=== PATIENT | male | born 1955 | race Caucasian/White ===

== ENCOUNTER 2018-07-02 17:44 | Observation (INO) | payer BC ==
[2018-07-02 18:03] LABS: PLATELET COUNT 237 10^3/uL (150-400)
[2018-07-02] MEDS ORDERED: IOPAMIDOL (ISOVUE 370) 100 ML BTL IV ONE (18:37)
--- NOTE | 2018-07-02 19:59 | PDGENHP ---
History and Physical - Chief Complaint Syncope - History of Present Illness Patient is a healthy 63-year-old male with past medical history of hypertension , hyperlipidemia, BPH and recent knee injury who was brought to the emergency room [place] [employer] [place]. Patient is visiting [place] and was having a beer [place] the [employer] [place] with a friend. He had a few sips and said that he started to feel little faint. His symptoms worsened he said he got tunnel vision and saw stars and then before he could fall someone at table next to him caught him and laid him down on the ground. He was able to answer questions during this entire episode but his friend said that he did not seem to be "with it". They tried to set him up and he became dizzy again and so they lied back down. Fire department was called who noted that his heart rate was in the 30s and his blood pressure was in the 60 systolic. At this point he feels fine, has no chest pain, shortness of breath or other symptoms. He said that he walked over 3 miles this morning and ate very little and only had coffee to drink. He thinks this may be the cause of his symptoms. He says he is a runner and normally has a low heart rate. History Information - Allergies/Home Medication List Allergies/Adverse Reactions: No Known Allergies Allergy (Unverified 07/02/18 17:47) Home Medications: Amlodipine Besylate 07/02/18 [Last Taken Unknown] Atorvastatin Calcium 07/02/18 [Last Taken Unknown] Lisinopril 07/02/18 [Last Taken Unknown] Prednisolone 07/02/18 [Last Taken Unknown] Verapamil 07/02/18 [Last Taken Unknown] I have personally reviewed and updated: family history, medical history, social history, surgical history - Past Medical History Additional medical history: Hypertension, hyperlipidemia, and BPH - Surgical History Additional surgical history: hernia, lasik, tendon surgery on hand, right ring amputation - Family History Positive for: non-pertinent - Social History Smoking Status: Never smoked Alcohol Use: Occasionally Drug Use: None Review of Systems Review of Systems: ROS: 10pt was reviewed & negative except for what was stated in HPI & below Physical Exam Physical Exam: Temp Pulse Resp BP Pulse Ox 36.7 C 74 17 131/78 H 94 07/02/18 17:47 07/02/18 19:05 07/02/18 19:05 07/02/18 19:05 07/02/18 19:05 Constitutional: no apparent distress, appears nourished, not in pain Eyes: PERRL, anicteric sclera, EOMI Ears, Nose, Mouth, Throat: moist mucous membranes, hearing normal, ears appear normal, no oral mucosal ulcers Cardiovascular: regular rate and rhythym, no murmur, rub, or gallop, No edema Respiratory: no respiratory distress, no rales or rhonchi, clear to auscultation Gastrointestinal: normoactive bowel sounds, soft, non-tender abdomen, no palpable masses Genitourinary: no bladder fullness, no bladder tenderness Skin: warm, normal color, no rashes or abrasions, no fluctuance, no induration, No mottled Musculoskeletal: full muscle strength, no muscle tenderness, normal joint ROM, no joint effusions Psychiatric: interacting appropriately, not anxious, not encephalopathic, thought process linear Lymph, Heme, Immunologic: no cervical LAD, no supraclavicular LAD Lab Data & Imaging Review 07/02/18 17:50 07/02/18 17:50 WBC 6.65 10^3/uL (3.80-9.50) 07/02/18 17:50 RBC 4.40 10^6/uL (4.40-6.38) 07/02/18 17:50 Hgb 13.3 g/dL (13.7-17.5) L 07/02/18 17:50 Hct 38.1 % (40.0-51.0) L 07/02/18 17:50 MCV 86.6 fL (81.5-99.8) 07/02/18 17:50 MCH 30.2 pg (27.9-34.1) 07/02/18 17:50 MCHC 34.9 g/dL (32.4-36.7) 07/02/18 17:50 RDW 12.3 % (11.5-15.2) 07/02/18 17:50 Plt Count 237 10^3/uL (150-400) 07/02/18 17:50 MPV 11.2 fL (8.7-11.7) 07/02/18 17:50 Neut % (Auto) 61.0 % (39.3-74.2) 07/02/18 17:50 Lymph % (Auto) 34.0 % (15.0-45.0) 07/02/18 17:50 [place] % (Auto) 3.8 % (4.5-13.0) L 07/02/18 17:50 Eos % (Auto) 0.6 % (0.6-7.6) 07/02/18 17:50 Baso % (Auto) 0.3 % (0.3-1.7) 07/02/18 17:50 Nucleat RBC Rel Count 0.0 % (0.0-0.2) 07/02/18 17:50 Absolute Neuts (auto) 4.06 10^3/uL (1.70-6.50) 07/02/18 17:50 Absolute Lymphs (auto) 2.26 10^3/uL (1.00-3.00) 07/02/18 17:50 Absolute Monos (auto) 0.25 10^3/uL (0.30-0.80) L 07/02/18 17:50 Absolute Eos (auto) 0.04 10^3/uL (0.03-0.40) 07/02/18 17:50 Absolute Basos (auto) 0.02 10^3/uL (0.02-0.10) 07/02/18 17:50 Absolute Nucleated RBC 0.00 10^3/uL (0-0.01) 07/02/18 17:50 Immature Gran % 0.3 % (0.0-1.1) 07/02/18 17:50 Immature Gran # 0.02 10^3/uL (0.00-0.10) 07/02/18 17:50 D-Dimer 0.63 ug/mLFEU (0.00-0.50) H 07/02/18 17:50 Sodium 135 mEq/L (135-145) 07/02/18 17:50 Potassium 3.2 mEq/L (3.5-5.2) L 07/02/18 17:50 Chloride 102 mEq/L (97-110) 07/02/18 17:50 Carbon Dioxide 23 mEq/l (22-31) 07/02/18 17:50 Anion Gap 10 mEq/L (6-14) 07/02/18 17:50 BUN 21 mg/dL (7-23) 07/02/18 17:50 Creatinine 1.1 mg/dL (0.7-1.3) 07/02/18 17:50 Estimated GFR > 60 07/02/18 17:50 Glucose 116 mg/dL (70-100) H 07/02/18 17:50 Calcium 8.8 mg/dL (8.5-10.4) 07/02/18 17:50 Magnesium 2.2 mg/dL (1.6-2.3) 07/02/18 17:50 POC Troponin I 0.01 ng/mL (0.00-0.08) 07/02/18 17:59 Ethyl Alcohol 17 mg/dL (0-10) H 07/02/18 17:50 Assessment & Plan Assessment: 63-year-old male past medical history hypertension, hyperlipidemia, BPH here with syncopal episode. Syncope- sounds like it was due to orthostasis, or vasovagal. Blood pressure normal in the emergency room, heart rate in the 60s. He endorses taking amlodipine and ramipril. Poor oral intake today. CTA chest without any pulmonary embolus, EKG with normal sinus rhythm. M -monitor on telemetry -check orthostatics -fluid resuscitation -check echo in the morning Hypertension- takes ramipril and amlodipine. Should be fine to continue while here and assess if he is orthostatic due to these medications. Hyperlipidemia- continue Lipitor BPH-continue tamsulosin Normocytic anemia- no history of GI bleed or any evidence of current bleeding. Prophylaxis- SCDs and Lovenox Fluids-intravenous saline Electrolytes-within normal limits Nutrition-regular diet Cor-full Dispo- Observation for syncope
[2018-07-02] MEDS ORDERED: ONDANSETRON 4 MG/2 ML VIAL IVP PRN (20:08)
[2018-07-02] MEDS ORDERED: ONDANSETRON DISINTEGRATING 4 MG TAB PO PRN (20:08)
[2018-07-02] MEDS ORDERED: ACETAMINOPHEN 325 MG TAB PO PRN (20:08)
--- NOTE | 2018-07-02 20:12 | EDPHY ---
H & P Stated Complaint: SYNCOPAL EPISODE, PASSED OUT TWICE, WITNESS Time Seen by Provider: 07/02/18 17:50 HPI/ROS: Chief complaint: Syncope History of present illness: This is a 63-year-old male brought to the emergency department by EMS for evaluation of a syncopal episode. 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 He arrived last week. He is scheduled to be here for the month of June. He was in his usual state of health today. He was at a restaurant this evening, he had ordered a beer and just started to drink it when he started to feel lightheaded, dizzy and developed tunnel vision. A syncopal episode occurred. This was witnessed by his friend who was able to catch him and lowered him to the ground. EMS was activated. Per paramedics the fire department reported that on their arrival patient was alert and oriented, however he was bradycardic with a pulse in the 30s and systolic blood pressure in the 40s. When they attempted to sit patient up he had another syncopal episode. Repeat vitals showed pulse in the 40s and systolic blood pressure in 80s. During transport here EMS reports that his pulse has been within normal limits as has his blood pressure. Patient states he feels well at this time. He does not remember the event well. However there was no seizure activity/postictal state noted by EMS. No associated signs or symptoms including no headache, no chest pain, no shortness of breath, no cough, no fever or cold symptoms. Review of systems: A 10 point review of systems was obtained and other than described above was negative. - Personal History Current Tetanus Diphtheria and Acellular Pertussis (TDAP): Yes - Medical/Surgical History Hx Asthma: No Hx Chronic Respiratory Disease: No Hx Diabetes: No Hx Cardiac Disease: No Hx Renal Disease: No Hx Cirrhosis: No Hx Alcoholism: No Hx HIV/AIDS: No Hx Splenectomy or Spleen Trauma: No Other PMH: HTN, HIGH CHOLESTEROL, R MCL TEAR - Social History Smoking Status: Never smoked - Physical Exam Exam: General Appearance: Alert, nontoxic. Eyes: Pupils equal and round no pallor or injection. ENT, Mouth: Mucous membranes moist. Respiratory: There are no retractions, lungs are clear to auscultation. Cardiovascular: Regular rate and rhythm. Gastrointestinal: Abdomen is soft and non tender, no masses, bowel sounds normal. Neurological: Alert and oriented x4. Cranial nerves 2-12 grossly intact. Strength and sensation intact and symmetrical. Skin: Warm and dry, no rashes. Musculoskeletal: Neck is supple non tender. Extremities are symmetrical, full range of motion. Psychiatric: Patient is oriented X 3, there is no agitation. Constitutional: Initial Vital Signs Temperature (C) 36.7 C 07/02/18 17:47 Heart Rate 58 L 07/02/18 17:47 Respiratory Rate 17 07/02/18 17:47 Blood Pressure 143/71 H 07/02/18 17:47 O2 Sat (%) 100 07/02/18 17:47 O2 Delivery Mode Room Air O2 (L/minute) 2 Allergies/Adverse Reactions: No Known Allergies Allergy (Unverified 07/02/18 17:47) Home Medications: Medication Instructions Recorded Amlodipine Besylate 07/02/18 Atorvastatin Calcium 07/02/18 Lisinopril 07/02/18 Prednisolone 07/02/18 Verapamil 07/02/18 Medical Decision Making - Diagnostics Imaging Results: Imaging Impressions Chest/Thorax CTA 07/02/18 18:22 Impression: 1. No evidence of pulmonary thromboembolic disease. 2. Moderate hiatal hernia. 3. Several subcentimeter hypodense lesions in the liver, which are [id number] -characterize and likely represent hepatic cysts. 4. Probable nonobstructive left nephrolithiasis. 5. Mild degenerative change thoracic spine. Results called and discussed with REBEKA Alfred, on July 02, 2018 at 1921. E:amm Imaging: Discussed imaging studies w/ call or contact centre team leader Radiologist ED Course/Re-evaluation: Patient is discussed with my secondary supervising physician Dr. Kady Moore. Patient presents to the emergency department for a syncopal episode. Patient is nontoxic. Vital signs are stable. Orthostatic vital signs are negative. Workup has been largely unremarkable. However given age, report of significant bradycardia and hypotension by EMS he will be admitted to the hospitalist, Dr. Asher Abarca, for observation. The plan has been discussed with the patient who voiced understanding and agreement with it. Differential Diagnosis: Included but not limited to vasovagal, volume depleted state including dehydration and anemia, electrolyte disturbance, cardiac disturbance - Data Points Laboratory Results: Laboratory Results 07/02/18 17:50 07/02/18 17:50 07/02/18 07/02/18 07/02/18 17:59 17:50 17:50 WBC RBC Hgb Hct MCV MCH MCHC RDW Plt Count MPV Neut % (Auto) Lymph % (Auto) [place] % (Auto) Eos % (Auto) Baso % (Auto) Nucleat RBC Rel Count Absolute Neuts (auto) Absolute Lymphs (auto) Absolute Monos (auto) Absolute Eos (auto) Absolute Basos (auto) Absolute Nucleated RBC Immature Gran % Immature Gran # D-Dimer 0.63 ug/mLFEU H ug/mLFEU (0.00-0.50) Sodium Potassium Chloride Carbon Dioxide Anion Gap BUN Creatinine Estimated GFR Glucose Calcium Magnesium 2.2 mg/dL mg/dL (1.6-2.3) POC Troponin I 0.01 ng/mL ng/mL (0.00-0.08) Ethyl Alcohol 07/02/18 07/02/18 17:50 17:50 WBC 6.65 10^3/uL 10^3/uL (3.80-9.50) RBC 4.40 10^6/uL 10^6/uL (4.40-6.38) Hgb 13.3 g/dL L g/dL (13.7-17.5) Hct 38.1 % L % (40.0-51.0) MCV 86.6 fL fL (81.5-99.8) MCH 30.2 pg pg (27.9-34.1) MCHC 34.9 g/dL g/dL (32.4-36.7) RDW 12.3 % % (11.5-15.2) Plt Count 237 10^3/uL 10^3/uL (150-400) MPV 11.2 fL fL (8.7-11.7) Neut % (Auto) 61.0 % % (39.3-74.2) Lymph % (Auto) 34.0 % % (15.0-45.0) [place] % (Auto) 3.8 % L % (4.5-13.0) Eos % (Auto) 0.6 % % (0.6-7.6) Baso % (Auto) 0.3 % % (0.3-1.7) Nucleat RBC Rel Count 0.0 % % (0.0-0.2) Absolute Neuts (auto) 4.06 10^3/uL 10^3/uL (1.70-6.50) Absolute Lymphs (auto) 2.26 10^3/uL 10^3/uL (1.00-3.00) Absolute Monos (auto) 0.25 10^3/uL L 10^3/uL (0.30-0.80) Absolute Eos (auto) 0.04 10^3/uL 10^3/uL (0.03-0.40) Absolute Basos (auto) 0.02 10^3/uL 10^3/uL (0.02-0.10) Absolute Nucleated RBC 0.00 10^3/uL 10^3/uL (0-0.01) Immature Gran % 0.3 % % (0.0-1.1) Immature Gran # 0.02 10^3/uL 10^3/uL (0.00-0.10) D-Dimer Sodium 135 mEq/L mEq/L (135-145) Potassium 3.2 mEq/L L mEq/L (3.5-5.2) Chloride 102 mEq/L mEq/L (97-110) Carbon Dioxide 23 mEq/l mEq/l (22-31) Anion Gap 10 mEq/L mEq/L (6-14) BUN 21 mg/dL mg/dL (7-23) Creatinine 1.1 mg/dL mg/dL (0.7-1.3) Estimated GFR > 60 Glucose 116 mg/dL H mg/dL (70-100) Calcium 8.8 mg/dL mg/dL (8.5-10.4) Magnesium POC Troponin I Ethyl Alcohol 17 mg/dL H mg/dL (0-10) Point of Care Test Results: Chemistry 07/02/18 17:59 POC Troponin I 0.01 ng/mL ng/mL (0.00-0.08) Departure - Departure Disposition: [facility] Acute Clinical Impression: Syncope Condition: Good
[2018-07-02] MEDS ORDERED: NS 1,000 ML IV SCH (20:15)
[2018-07-03 05:01] LABS: PLATELET COUNT 185 10^3/uL (150-400)
[2018-07-03] MEDS ORDERED: ENOXAPARIN 40 MG/0.4 ML SYR SC SCH (09:00)
[2018-07-03] MEDS ORDERED: IBUPROFEN 200 MG TAB PO PRN (09:46)
[2018-07-03] MEDS ORDERED: ASPIRIN 81 MG CHEWABLE TAB PO SCH (10:00)
[2018-07-03] MEDS: predniSONE 5 MG TAB PO SCH ×2 (10:24→10:26)
[2018-07-03] MEDS ORDERED: ATORVASTATIN CALCIUM 40 MG TAB PO SCH (12:00)
--- NOTE | 2018-07-03 12:28 | ECHO ---
[email or web address] [address] [address] Main: [phone] Echocardiography Examination Transthoracic Name: MEGHANA KHOURY MR#: [id number] Study Date: 07/03/2018 Study Time: 09:00 AM Date of : 1955 Age: 63 year(s) Height: 172.7 cm (68 in.) Weight: 73.94 kg (163 lb.) BSA: 1.87 m2 Gender: Male Examination: Echo Contrast: Image Quality: Adequate Rhythm: Heart Rate: BP: 127 mmHg/76 mmHg Indication: Cardiac: syncope Procedure Staff Referring Physician: Semiconductor Engineer: Litzy Pressley [facility] Reading Physician: Steven Casillas MD Requesting Provider: Ordering Physician: Asher Abarca Indication: Cardiac: syncope Measurements Chambers AV/MV Label Value Normal Value Label Value Normal Value LVOTd 2.3 cm (1.9cm - 2.1cm) AV PGmax 11 mmHg LVDd, 2D 5.1 cm (4.2cm - 5.9cm) AV PGmean 7 mmHg LVDs, 2D 3.2 cm (2.1cm - 4cm) AV Vmax 1.66 m/s IVSd, 2D 1.2 cm (0.6cm - 1.1cm) PAKO (VTI) 3.1 cm2 LVPWd, 2D 1.2 cm (0.6cm - 1cm) MV E Vmax 0.76 m/s LVEF, BP 69 % (55% - 70%) MV A Vmax 0.67 m/s LVEF, 2D 66 % (54% - 74%) MV E/A 1.13 LVOT PGmean 5 mmHg MV E/E' lateral 6.9 LVOT Vmean 1.03 m/s MV E/E' septal 9.9 (0.45 - 1.25) RVDd, 2D 3.6 cm (1.9cm - 3.8cm) MV DT 285 ms LA Volume, BP 78 ml (18ml - 58ml) MV E' septal 0.08 m/s LADs, 2D 4 cm (3cm - 4cm) MV PHT 0.09 s LAESV index, BP 41.7 ml/m2 MVA PHT 2.6 cm2 RA Area 17.2 cm2 MV E' lateral 0.11 m/s Additional Vessels MV E/E' mean 8 Label Value Normal Value MV PHT 85 ms AoAsc 3.4 cm MV E' mean 0.1 m/s AoRoot, 2D 3.3 cm (1.4cm - 2.6cm) TV/PV IVC 1.7 cm (1.2cm - 2.3cm) Label Value Normal Value Patient: MEGHANA KHOURY Study Date: 07/03/2018 Page 1 of 3 09:00 AM RA Pressure 5 mmHg RVSP 38 mmHg TR Pmax 33 mmHg TR Vmax 2.87 m/s PV PGmax 4 mmHg PV Vmax, Caliper 1.03 m/s (0.6m/s - 0.9m/s) Conclusions (1) Left ventricular systolic ejection fraction was normal (65-70%) - normal wall motion - mild LVH (2) Normal RV size and function (3) Normal RA size with mild to mod LA dilation noted (4) Mild MR (5) Trileaflet aortic valve with mild to mod AI, but no stenosis (6) Mild TR - RVSP was 35-40 mm Hg (7) Mild PI (8) Normal aorta dimensions (9) Trivial pericardial effusion Findings Left Ventricle: Left ventricle is normal in size. Normal global systolic left ventricular function. The ejection fraction, measured by Simpsons method, is 69 %. There is mild concentric left ventricular hypertrophy. There are no regional wall motion abnormalities. Cannot determine LAP and Diastolic Dysfunction Grade. Right Ventricle: Normal size right ventricle. Right ventricular systolic function is normal. Left Atrium: The left atrium is mildly to moderately dilated. Right Atrium: The right atrium is normal in size. Mitral Valve: Mitral valve appears structurally normal. Mild mitral regurgitation. No mitral valve stenosis. Aortic Valve: Aortic leaflets are structurally normal. Mild to moderate aortic regurgitation is present. There is no aortic stenosis. Tricuspid Valve: Tricuspid valve leaflets are structurally normal. Mild tricuspid regurgitation. No tricuspid valve stenosis. Right Ventricular systolic pressure is measured at 38 mmHg. Pulmonary artery pressure slightly increased. Pulmonic Valve: Pulmonic leaflets are structurally normal. Mild pulmonic valve regurgitation is present. Aorta: The aortic root size in 2D measures 3.3 cm. The ascending aorta measures 3.4 cm. Aorta Measurements AoRoot, 2D is 3.3 cm. IVC: The inferior vena cava is normal in size. Pericardium: Trivial pericardial effusion. Exam Details Procedure Ordered: Echo Patient: MEGHANA KHOURY Study Date: 07/03/2018 Page 2 of 3 09:00 AM Procedure Status: Routine study Image Quality: Adequate Facility Location: Cardiac Echo 1 (No Signature Object) Patient: MEGHANA KHOURY Study Date: 07/03/2018 Page 3 of 3 09:00 AM [id number]
--- NOTE | 2018-07-03 13:38 | HOSPPROG ---
Hospitalist Progress Note Assessment/Plan: 63-year-old male past medical history hypertension, hyperlipidemia, BPH here with syncopal episode. 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 Blood pressure normal in the emergency room, heart rate in the 60s. HR on EMS was in the 30's. He endorses taking amlodipine and ramipril. Poor oral intake today. CTA chest without any pulmonary embolus, EKG with normal sinus rhythm. 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 Will continue Hyperlipidemia- continue Lipitor BPH-continue tamsulosin Normocytic anemia- no history of GI bleed or any evidence of current bleeding. Right knee pain: was taking Prednisone for right knee pain. Will stop. Prophylaxis- SCDs and Lovenox Nutrition-regular diet Cor-full Dispo- Observation for syncope. Can hopefully d/c today pending cards eval Subjective: no cp or sob. no n/v. no focal weakness Objective: Vital Signs Temp Pulse Resp BP Pulse Ox 36.8 C 64 16 143/79 H 95 07/03/18 11:19 07/03/18 11:19 07/03/18 11:19 07/03/18 11:19 07/03/18 11:19 Laboratory Results 07/03/18 03:36 07/03/18 03:36 07/02/18 07/03/18 07/04/18 05:59 05:59 05:59 Intake Total 1702 Balance 1702 - Physical Exam Constitutional: no apparent distress Eyes: PERRL, EOMI Ears, Nose, Mouth, Throat: moist mucous membranes, hearing normal Cardiovascular: regular rate and rhythym, no murmur, rub, or gallop, No edema Respiratory: no respiratory distress, no rales or rhonchi, clear to auscultation Gastrointestinal: normoactive bowel sounds, soft, non-tender abdomen Skin: warm Neurologic: AAOx3 Psychiatric: interacting appropriately, not anxious, not encephalopathic ICD10 Worksheet Patient Problems: Problems Problem Status Onset Syncope Acute
[2018-07-03] MEDS ORDERED: RAMIPRIL 5 MG CAP PO SCH (14:00)
--- NOTE | 2018-07-03 14:47 | PDCARCONS ---
Cardiology Consult Reason for Consult: Syncope Chief Complaint: Syncopal event Requesting Physician: Hospitalist Team History of Present Illness: Patient is a 63 y/o male with history of HTN (on therapy), HLP (recently started on therapy), CAD (by MSCT), and PBH, who presented to [facility] ER via EMS after a syncopal event was noted. 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 Overall, the patient has been feeling well. He has been in town for several weeks and not noted any issues or symptoms. No chest pains or pressure. No PND or orthopena. Patient had a recent MSCT which revealed positive calcium spots, and as a result, was started on both ASA and statins. These thearpies have been tolerated without issues. While in [place] yesterday , walking [employer], the patient and friends stopped to have a beer. After about a third of the beer, the patient acutely began to feel dizzy, and initial thought was poor alcohol tolerance given altitude, but the symptoms rapidly progressed with some "tunnel vision" being noted. Ultimately, the patient passed out, and was noted to be unconscious for several minutes (without seizure like activity noted - there happened to be EMS in the restaurant). Patient's mental status returned to normal, but given the severity of the event , ER work up was recomended. EMS reports of both hypotension and bradycardia. No troponin elevated noted. D-dimer elevated led to CT rule out PE (no thromboembolic disease was noted). In speaking with the patient today, he also reports that he has not been good about drinking fluids, and feels that dehydration may be contributing to some of the symptoms noted. No history of stress testing, but as a submersible pilot, he does have ECG twice per year. Remainder of the 12 point review of systems was unremarkable. History Information - Allergies/Home Medication List Allergies/Adverse Reactions: No Known Allergies Allergy (Unverified 07/02/18 17:47) Home Medications: Aspirin [Aspirin 81mg (*)] 81 mg PO DAILY 07/02/18 [Last Taken 07/02/18] Atorvastatin Calcium [Lipitor 40 mg (*)] 40 mg PO 1200 07/02/18 [Last Taken 05/20] Ramipril [Altace] 10 mg PO DAILY 07/02/18 [Last Taken 07/02/18] Tamsulosin HCl [Flomax 0.4 MG (*)] 0.4 mg PO 1800 07/02/18 [Last Taken 07/01/18] amLODIPine BESYLATE [Amlodipine Besylate] 10 mg PO DAILY 07/02/18 [Last Taken ] predniSONE 5 mg PO BID 07/02/18 [Last Taken 07/02/18] Ibuprofen [Motrin (*)] 200 - 400 mg PO Q8H PRN 07/03/18 [Last Taken Unknown] I have personally reviewed and updated: family history, medical history, social history, surgical history Past Medical History: - Past Medical History coronary artery disease, hypertension, hyperlipidemia - Surgical History Reports: no pertinent surgical hx - Family History Positive for: non-pertinent - Social History Smoking Status: Never smoked Alcohol Use: Occasionally Drug Use: None Cardiac History - Cardiac History Past Cardiac History: CAD Cardiac Risk Factors: hypertension (>140/90), lipidemia, age > 65, male Timing/Duration: Minutes Severity: severe Severity Scale: 10 Activities at Onset: none Modifying Factors: improves with: lying down Associated Symptoms: syncope YESSICA Risk Evaluation age greater or equal to 65: yes greater or equal to 3 CAD risk factors: yes known CAD(stenosis greater or eqaul to 50%): no ASA use in past 7 days: yes severe angina(greater or equal to 2 episodes in 24hrs): no EKG ST changes greater or equal to 0.5mm: no positive cardiac marker: no Total Score: 3 YESSICA Score: 13.2% risk Physical Exam Physical Exam: Temp Pulse Resp BP Pulse Ox 36.8 C 64 16 143/79 H 95 07/03/18 11:19 07/03/18 11:19 07/03/18 11:19 07/03/18 11:19 07/03/18 11:19 Constitutional: no apparent distress, appears nourished, not in pain Eyes: PERRL, EOMI Ears, Nose, Mouth, Throat: moist mucous membranes, hearing normal, ears appear normal Cardiovascular: regular rate and rhythym, pulses symmetric bilaterally, No systolic murmur, No JVD, No edema Peripheral Pulses: 2+: dorsalis-pedis (R), dorsalis-pedis (L) Respiratory: no respiratory distress, no rales or rhonchi, clear to auscultation Gastrointestinal: normoactive bowel sounds Skin: warm, No rash Musculoskeletal: full muscle strength, no muscle tenderness, normal joint ROM Neurologic: AAOx3, sensation intact bilaterally, CN II-XII Intact Psychiatric: interacting appropriately, not anxious, not encephalopathic Lab and Imaging 07/03/18 03:36 07/03/18 03:36 WBC 7.72 10^3/uL (3.80-9.50) 07/03/18 03:36 RBC 4.18 10^6/uL (4.40-6.38) L 07/03/18 03:36 Hgb 12.6 g/dL (13.7-17.5) L 07/03/18 03:36 Hct 36.4 % (40.0-51.0) L 07/03/18 03:36 MCV 87.1 fL (81.5-99.8) 07/03/18 03:36 MCH 30.1 pg (27.9-34.1) 07/03/18 03:36 MCHC 34.6 g/dL (32.4-36.7) 07/03/18 03:36 RDW 12.6 % (11.5-15.2) 07/03/18 03:36 Plt Count 185 10^3/uL (150-400) 07/03/18 03:36 MPV 11.1 fL (8.7-11.7) 07/03/18 03:36 Neut % (Auto) 69.7 % (39.3-74.2) 07/03/18 03:36 Lymph % (Auto) 22.0 % (15.0-45.0) 07/03/18 03:36 [place] % (Auto) 5.8 % (4.5-13.0) 07/03/18 03:36 Eos % (Auto) 2.1 % (0.6-7.6) 07/03/18 03:36 Baso % (Auto) 0.3 % (0.3-1.7) 07/03/18 03:36 Nucleat RBC Rel Count 0.0 % (0.0-0.2) 07/03/18 03:36 Absolute Neuts (auto) 5.38 10^3/uL (1.70-6.50) 07/03/18 03:36 Absolute Lymphs (auto) 1.70 10^3/uL (1.00-3.00) 07/03/18 03:36 Absolute Monos (auto) 0.45 10^3/uL (0.30-0.80) 07/03/18 03:36 Absolute Eos (auto) 0.16 10^3/uL (0.03-0.40) 07/03/18 03:36 Absolute Basos (auto) 0.02 10^3/uL (0.02-0.10) 07/03/18 03:36 Absolute Nucleated RBC 0.00 10^3/uL (0-0.01) 07/03/18 03:36 Immature Gran % 0.1 % (0.0-1.1) 07/03/18 03:36 Immature Gran # 0.01 10^3/uL (0.00-0.10) 07/03/18 03:36 D-Dimer 0.63 ug/mLFEU (0.00-0.50) H 07/02/18 17:50 Sodium 142 mEq/L (135-145) 07/03/18 03:36 Potassium 3.6 mEq/L (3.5-5.2) 07/03/18 03:36 Chloride 108 mEq/L (97-110) 07/03/18 03:36 Carbon Dioxide 26 mEq/l (22-31) 07/03/18 03:36 Anion Gap 8 mEq/L (6-14) 07/03/18 03:36 BUN 19 mg/dL (7-23) 07/03/18 03:36 Creatinine 1.0 mg/dL (0.7-1.3) 07/03/18 03:36 Estimated GFR > 60 07/03/18 03:36 Glucose 85 mg/dL (70-100) 07/03/18 03:36 Calcium 8.5 mg/dL (8.5-10.4) 07/03/18 03:36 Phosphorus 4.5 mg/dL (2.5-4.5) 07/03/18 03:36 Magnesium 2.1 mg/dL (1.6-2.3) 07/03/18 03:36 POC Troponin I 0.01 ng/mL (0.00-0.08) 07/02/18 17:59 Ethyl Alcohol 17 mg/dL (0-10) H 07/02/18 17:50 Visualized and Interpreted imaging results: Yes Interpretation: No PE. No report of CAD on this study, but the patient did relay MSCT with CAD noted EKG Interpretation: Positive for: normal sinsus rhythm Telemetry: normal sinus rhythm Echocardiogram: normal LVEF. Mod LAE noted. Mild MR, Mild TR, and mild to mod AI noted A/P Assessment: Patient is a 63 y/o male with history of CAD (by MSCT), HTN, HLP, and BPH, who presented to [facility] ER via EMS after syncope. Patient feels that PO intake has been poor (given BPH history), and dehydration might have contributed to the event. Echo with normal wall motion, but a mild to moderate degree of AI as well as mild to mod LAE was noted. No awareness of palpitations with the event noted. No event similar in the past. 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 No cardiovascular complaints at present. No history of stress testing in the past, but the patient is routinely screened given his profession. Plan: Several options were discussed with the patient. (1) Patient could have MPI (nawaf given a recent knee injury that would preclude his ability to be on ETT) to ensure that there is not critical CAD (in the midst of CAD as noted on MSCT). (2) Would also consider [employer] monitor, but given the patient is not from [place], and there are plans for the patient to travel home, it might be better for this testing to be arranged and performed with cardiology at home (3) Would continue therapy on ASA for CAD history (4) Statins to continue with annual assessment of cholesterol and LFTs (5) No symptoms, and patient wanting to leave but ASCVD risk is elevated based on available information (>>7.5%) (6) Would refrain from further caffeine use (given the need to be off this medication for 24 hours prior to testing) (7) Discussion with patient and leaving, and having testing at home, but would stress patient prior to flight home (if this is possible).
--- NOTE | 2018-07-03 15:34 | ASMTCMCOM ---
CM Note CM Note Notes: 07/03/2018 Case Management Note Discussed pt during rounds this morning. Pt admitted for syncope. Pt resides in [place]. There are no therapy evals ordered today. There are no case management d/c needs identified d/t pt age, employment status, marital status and independence with ADL's prior to admission. Case Management d/c poc: independent with follow up as directed. Case Management available if needs change. Date Signed: 07/03/2018 03:34 PM Electronically Signed By:Eva Ruff RN
[2018-07-03 15:36] VITALS: BP 120/70
--- NOTE | 2018-07-03 16:09 | ASDISCHSUM ---
Discharge Information Plan Status:Home with No Needs Medically Cleared to Leave:07/03/2018 Discharge Date:07/03/2018 CM D/C Disposition:Home, Routine, Self-Care ADT D/C Disposition:Home, Routine, Self-Care Projected Discharge Date:07/03/2018 Transportation at D/C: Discharge Delay Reason: Follow-Up Date:07/03/2018 Discharge Slot: Final Diagnosis: Placement Information Patient Contact Information Contact Name:MOHSEN Relationship: Address:[address] [facility] [place] Work Phone: City:[place] Alternate Phone: State/Zip Code:[place] [address] Email: Financial Information Financial Class:BCOP Primary Plan Desc: OUT OF STATE [facility] Primary Plan Number:[id number] Secondary Plan Desc: Secondary Plan Number: Assessment Information LACE LACE Length of stay for Answers: Less than 1 day current admission Acuity / Level of Answers: Yes Care: Did the patient have an inpatient admission? Comorbidities - select Answers: Opioid dependence all that apply / Chronic pain Other Notes: HTN # of Emergency department Answers: 1-2 visits in the last 6 months Score: 9 Date Signed: 07/03/2018 04:08 PM Electronically Signed By:Eva Ruff RN [facility] Progress Note CM Note CM Note Notes: 07/03/2018 Case Management Note Discussed pt during rounds this morning. Pt admitted for syncope. Pt resides in [place]. There are no therapy evals ordered today. There are no case management d/c needs identified d/t pt age, employment status, marital status and independence with ADL's prior to admission. Case Management d/c poc: independent with follow up as directed. Case Management available if needs change. Date Signed: 07/03/2018 03:34 PM Electronically Signed By:Eva Ruff RN Intervention Information Intervention Type:*Incorrect Registration Date of Service:07/03/2018 10:15 AM Patient Type:Inpatient Staff Member:Jamilah Campos Hours: Discipline: Severity: Comment:
--- NOTE | 2018-07-03 16:29 | PDDCSUM ---
Discharge Summary Discharge Summary: Patient is a 63 y/o male with history of CAD (by MSCT), HTN, HLP, and BPH, who presented to [facility] ER via EMS after syncope. Patient feels that PO intake has been poor (given BPH history), and dehydration might have contributed to the event. Echo with normal wall motion, but a mild to moderate degree of AI as well as mild to mod LAE was noted. No awareness of palpitations with the event noted. No event similar in the past. 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 No cardiovascular complaints at present. No history of stress testing in the past, but the patient is routinely screened given his profession. Cardiology was consulted. He will have a stress test with [facility] as an outpatient prior to returning home. When he gets home, he will need to meet with a truck driver's offsider to arrange for a holter monitor prior to piloting an aircraft. He will cont ASA, home BP meds, and statin. DDX: Syncope- sounds like it was due to orthostasis, or vasovagal. Blood pressure normal in the emergency room, heart rate in the 60s. HR on EMS was in the 30's. He endorses taking amlodipine and ramipril. Poor oral intake today. CTA chest without any pulmonary embolus, EKG with normal sinus rhythm. M Hypertension- takes ramipril and amlodipine. Will continue Hyperlipidemia- continue Lipitor BPH-continue tamsulosin Normocytic anemia- no history of GI bleed or any evidence of current bleeding. Right knee pain: was taking Prednisone for right knee pain. Will stop. Exam: SEE PN FROM TODAY MEDS: SEE MED REC TOTAL TIME SPENT ON D/C INCLUDING COORDINATING WITH NURSE AND CARDIOLOGY IS 45 MINS
[2018-07-03] MEDS ORDERED: TAMSULOSIN HCL 0.4 MG CAP PO SCH (18:00)
== END 2018-07-03 17:11 | disposition home or self-care (01) ==
LOC: INTOOBSV 19:34 → F2W 20:16
PROVIDERS: ADMIT Internal Medicine; ATTEND Internal Medicine
DX: R55 Syncope and collapse (principal); I10 Essential (primary) hypertension; R79.89 Other specified abnormal findings of blood chemistry; I25.10 Atherosclerotic heart disease of native coronary artery without angina pectoris; E78.5 Hyperlipidemia, unspecified; N40.0 Benign prostatic hyperplasia without lower urinary tract symptoms; K76.9 Liver disease, unspecified; M47.814 Spondylosis without myelopathy or radiculopathy, thoracic region; K44.9 Diaphragmatic hernia without obstruction or gangrene
CPT/HCPCS: 71275; 93306; G0378; 84484-ER; G0480; J1650; J7512; Q9967